=== PATIENT | female | born 1960 | race African-American/Black ===

== ENCOUNTER 2017-08-28 17:49 | Emergency (ER) | payer BC ==
--- NOTE | 2017-08-28 17:54 | PDOC ---
Rapid Medical Evaluation Chief Complaint: Respiratory Time Seen by Provider: 08/28/17 17:53 Medical Evaluation: Allergies Allergy/AdvReac Type Severity Reaction Status Date / Time Penicillins Allergy Rash Verified 06/06/16 16:17 08/28/17 17:54 I have performed a brief in-person evaluation of this patient. The patient presents with a chief complaint of: cough x 1 week. Has h/o HLD and HTN Pertinent physical exam findings:stable w/clear chest/lungs I have ordered the following:CXR The patient will proceed to the ED for further evaluation.
[2017-08-28 17:56] VITALS: BP 119/69; PULSE 61; TEMP 97.8; BMI 24.1
[2017-08-28] MEDS ORDERED: ALBUTEROL SO4 2.5/IPRATROPIUM 0.5 INH SOL 3 ML VIAL.NEB. NEB ONE ×2 (18:52→18:56)
--- NOTE | 2017-08-28 19:13 | PDOC ---
History of Present Illness - General Chief Complaint: Respiratory Stated Complaint: COLD SYMPTOMS Time Seen by Provider: 08/28/17 17:53 History Source: Patient Exam Limitations: No Limitations - History of Present Illness Initial Comments: 08/28/17 19:06 Patient is a 57-year-old female, presents with hacking dry cough for one week patient reports history of same. Recently told that she has beginning stages of asthma has scheduled appointment in September for rn relief charge. Patient states when she has this issue she usually goes on antibiotics which resolves a temporarily and cough returns. Denies any chest pain or shortness of breath, no fever. Past Medical History: hypertension, asthma, hyperlipidemia Allergies: No known allergies Medications: [See medication list] Family History: Non-contributory Social History: Denies smoking, alcohol use, or IVDU Review of Systems GENERAL/CONSTITUTIONAL: [No fever or chills. No weakness. No weight change.] HEAD, EYES, EARS, NOSE AND THROAT: [No change in vision. No ear pain or discharge. No sore throat. ] CARDIOVASCULAR: [No chest pain or shortness of breath.] RESPIRATORY: [COugh, no wheezing, no hemoptysis.] GASTROINTESTINAL: [No nausea, vomiting, diarrhea or constipation. No rectal bleeding.] GENITOURINARY: [No dysuria, frequency, or change in urination.] MUSCULOSKELETAL: [No joint or muscle swelling or pain. No neck or back pain.] SKIN AND BREASTS: [No rash or easy bruising.] NEUROLOGIC: [No headache, vertigo, loss of consciousness, or loss of sensation.] PSYCHIATRIC: [No depression or anxiety.] ENDOCRINE: [No increased thirst. No abnormal weight change.] HEMATOLOGIC/LYMPHATIC: [No anemia, easy bleeding, or history of blood clots.] ALLERGIC/IMMUNOLOGIC: [No hives or skin allergy. No latex allergy.] Physical Exam: GENERAL: [The patient is awake, alert, and fully oriented, in no acute distress. ] EYES: [Pupils equal, round and reactive to light, extraocular movements intact, sclera anicteric, conjunctiva clear.] ENT: [Ears normal, nares patent, oropharynx clear without exudates. Moist mucous membranes. No uvula deviation] NECK: [Normal range of motion, supple without lymphadenopathy, JVD, or masses.] LUNGS: [Spasmotic cough, Breath sounds equal, clear to auscultation bilaterally. No wheezes, and no crackles.] HEART: [Regular rate and rhythm, normal S1 and S2 without murmur, rub or gallop. ] ABDOMEN: [Soft, nontender, normoactive bowel sounds. No guarding, no rebound. No masses. No bruising or abrasions] MUSCULOSKELETAL: [Normal range of motion, no edema. No clubbing or cyanosis. No cords, erythema, or tenderness. No CVA Tenderness with fist.] NEUROLOGICAL: [Cranial nerves II through XII grossly intact. Normal speech, normal gait.] SKIN: [Warm, Dry, normal turgor, no rashes or lesions noted.] 08/28/17 19:09 Past History - Past Medical History Allergies/Adverse Reactions: Allergies Allergy/AdvReac Type Severity Reaction Status Date / Time Penicillins Allergy Rash Verified 08/28/17 17:55 Home Medications: Ambulatory Orders Amlodipine Besylate [Norvasc -] 10 mg PO DAILY 07/04/15 Montelukast Na [Singulair -] 10 mg PO HS 07/04/15 Rosuvastatin Calcium [Crestor] 10 mg PO HS 07/04/15 Albuterol Sulfate Inhaler - [Ventolin HFA Inhaler -] 2 inh PO Q4H PRN #1 inh Fluticasone Prop 0.05% Nasal [Flonase -] 1 spray NS BID #1 spray.pump 06/06/16 Hydrocodone/Chlorphen P-Stirex [Tussionex Pennkinetic Susp] 5 ml PO Q12H PRN # 30 bao.er.12h MDD 10 ml 06/06/16 Albuterol Sulfate Inhaler - [Ventolin Hfa Inhaler -] 2 inh PO Q4H #1 inh Aspirin [Rebeca Chewable Aspirin] 81 mg PO ASDIR 08/28/17 Aspirin/Diphenhydramine Citrat [Rebeca Pm Caplet] 1 each PO ASDIR 08/28/17 Azithromycin [Zithromax 250mg Tablets -] 250 mg PO UTDICT #6 tab 08/28/17 Benzonatate 200 mg PO ASDIR 08/28/17 Fluticasone/Vilanterol [Breo Ellipta 200-25 Mcg INH] 1 each IH ASDIR 08/28/17 Asthma: Yes Cardiac Disorders: Yes (mi) COPD: No HTN: Yes Hypercholesterolemia: Yes - Immunization History Immunization Up to Date: Yes - Suicide/Smoking/Psychosocial Hx Smoking History: Never smoked Have you smoked in the past 12 months: No Number of Cigarettes Smoked Daily: 0 Hx Alcohol Use: No Drug/Substance Use Hx: No Substance Use Type: None *Physical Exam - Vital Signs Last Vital Signs Temp Pulse Resp BP Pulse Ox 97.8 F 61 18 119/69 99 08/28/17 17:53 08/28/17 17:53 08/28/17 17:53 08/28/17 17:53 08/28/17 17:53 ED Treatment Course - Medications Given in the ED: ED Medications Discontinued Medications Generic Name Dose Route Start Last Admin Trade Name Brad PRN Reason Stop Dose Admin Albuterol/Ipratropium 1 amp 08/28/17 18:52 08/28/17 19:01 Duoneb - NEB 08/28/17 18:53 1 amp ONCE ONE Administration Medical Decision Making - Medical Decision Making 08/28/17 19:10 A/P: Patient with cough, lungs are clear, reactive. Cobblestoning to posterior pharynx, consistent with postnasal drip. Patient is currently on Flonase reports is not helping her as well as Singulair. I will give Combivent, chest x- ray pending. 08/28/17 19:11 08/28/17 19:13 08/28/17 19:36 X-ray wet read negative for acute cardiopulmonary disease will DC patient home on albuterol 2 puffs every 4 hours as needed for spasmodic cough, encourage patient to purchase a cool air humidifier and follow-up with pulmonology. Also DC and azithromycin I discussed the physical exam findings, ancillary test results and final diagnoses with the patient. I answered all of the patient's questions. The patient was satisfied with the care received and felt comfortable with the discharge plan and treatment plan. The patient will call to arrange follow-up and will return to the Emergency Department with any new, persistent or worsening symptoms. *DC/Admit/Observation/Transfer Diagnosis at time of Disposition: Cough - Discharge Dispostion Disposition: HOME Condition at time of disposition: Stable Admit: No - Prescriptions Prescriptions: Albuterol Sulfate Inhaler - [Ventolin Hfa Inhaler -] 2 inh PO Q4H #1 inh Azithromycin [Zithromax 250mg Tablets -] 250 mg PO UTDICT #6 tab - Referrals - Patient Instructions Printed Discharge Instructions: Cough Additional Instructions: Keep head of bed elevated 45 when sleeping Recommend follow-up with pulmonology as soon as possible Cool air humidifier Albuterol every 4 hours as needed Motrin for fever greater than 101 Followup in the primary care doctor's office in 2 days for evaluation. If any respiratory distress, increased cough, inability to drink, increased wheezing please return immediately to emergency department. - Post Discharge Activity Forms/Work/School Notes: Back to Work
== END 2017-08-28 19:45 | disposition home or self-care (01) ==
LOC: JERFT 17:49
PROC: 3E0F7GC Introduction of Other Therapeutic Substance into Respiratory Tract, Via Natural or Artificial Opening (ICD-10-PCS; principal; 2017-08-28)
DX: J00 Acute nasopharyngitis [common cold] (principal); R09.82 Postnasal drip
CPT/HCPCS: 71046-TC-FY; 99281-25

== ENCOUNTER 2018-12-26 09:37 | Emergency (ER) | payer BC ==
[2018-12-26 09:44] VITALS: BP 115/69; PULSE 74; TEMP 98.1; BMI 23.8
--- NOTE | 2018-12-26 09:54 | PDOC ---
History of Present Illness - General Chief Complaint: Eye Problem Stated Complaint: RT EYE REDNESS Time Seen by Provider: 12/26/18 09:47 - History of Present Illness Initial Comments: 12/26/18 09:55 58 years old with past medical history significant for hypertension hyperlipidemia presents emergency Department with right eye sub-conjunctival hemorrhage which started yesterday appeared worse today no pain and I no blurry vision or double vision no visual changes no headache no chest pain or shortness of breath Symptoms are mild to moderate persistent constant no exacerbating or alleviating factors. 12/26/18 09:57 Past History - Past Medical History Allergies/Adverse Reactions: Allergies Allergy/AdvReac Type Severity Reaction Status Date / Time Penicillins Allergy Rash Verified 12/26/18 09:39 Home Medications: Ambulatory Orders Amlodipine Besylate [Norvasc -] 10 mg PO DAILY 07/04/15 Montelukast Na [Singulair -] 10 mg PO HS 07/04/15 Rosuvastatin Calcium [Crestor] 10 mg PO HS 07/04/15 Fluticasone Prop 0.05% Nasal [Flonase -] 1 spray NS BID #1 spray.pump 06/06/16 Albuterol Sulfate Inhaler - [Ventolin Hfa Inhaler -] 2 inh PO Q4H #1 inh Aspirin [Rebeca Chewable Aspirin] 81 mg PO ASDIR 08/28/17 Fluticasone/Vilanterol [Breo Ellipta 200-25 Mcg INH] 1 each IH ASDIR 08/28/17 Ergocalciferol [Vitamin D2] 50,000 unit PO Q7D@1000 12/26/18 Potassium Chloride [Klor-Con] meq PO DAILY 12/26/18 Asthma: Yes Cardiac Disorders: Yes (mi) COPD: No HTN: Yes Hypercholesterolemia: Yes - Immunization History Immunization Up to Date: Yes - Suicide/Smoking/Psychosocial Hx Smoking History: Never smoked Have you smoked in the past 12 months: No Number of Cigarettes Smoked Daily: 0 Hx Alcohol Use: No Drug/Substance Use Hx: No Substance Use Type: None Review of Systems - Review of Systems Comments:: 12/26/18 09:56 ROS: A complete review of 10 out of 10 review of systems is taken and is negative apart from what is previously mentioned below and in the HPI. *Physical Exam - Vital Signs Last Vital Signs Temp Pulse Resp BP Pulse Ox 98.1 F 74 17 115/69 100 12/26/18 09:43 12/26/18 09:43 12/26/18 09:43 12/26/18 09:43 12/26/18 09:43 - Physical Exam Comments: 12/26/18 09:56 Vitals: Triage Vital signs reviewed General Appearance: no acute distress, well nourished well developed, Head: Atraumatic, Eyes: Pupils equal reactive round, extraocular movement intact right subconjunctival hemorrhage Skin: Warm and dry, no rashes or lesions, no rash, no petechiae Psych: normal mood, normal affect Medical Decision Making - Medical Decision Making 12/26/18 09:58 Well-appearing no apparent distress with right some conjunctival hemorrhage No visual changes Patient has eye Dr. no acute management needed at this time Findings, the need for follow-up, strict return instructions discussed with patient. *DC/Admit/Observation/Transfer Diagnosis at time of Disposition: Subconjunctival bleed Qualifiers: Laterality: right Qualified Code(s): H11.31 - Conjunctival hemorrhage, right eye - Discharge Dispostion Disposition: HOME Condition at time of disposition: Good Decision to Admit order: No - Referrals - Patient Instructions Printed Discharge Instructions: DI for Subconjunctival Hemorrhage Additional Instructions: Follow-up with your eye doctor within 1 week. Return to the emergency department for any eye symptoms changes in vision or for any concerns. - Post Discharge Activity
== END 2018-12-26 10:03 | disposition home or self-care (01) ==
LOC: JERFT 09:37
DX: H11.31 Conjunctival hemorrhage, right eye (principal); I51.9 Heart disease, unspecified; E78.00 Pure hypercholesterolemia, unspecified; I10 Essential (primary) hypertension; J45.909 Unspecified asthma, uncomplicated
CPT/HCPCS: 99281-25

== ENCOUNTER 2019-04-24 19:10 | Emergency (ER) | payer BC ==
[2019-04-24 19:21] VITALS: BP 111/69; PULSE 75; TEMP 98; BMI 24.1
[2019-04-24] MEDS ORDERED: diphenhydrAMINE HCL 12.5 MG/5 ML UNIT-DOSE CUPS ONE (19:38)
--- NOTE | 2019-04-24 19:46 | PDOC ---
History of Present Illness - General Chief Complaint: Rash Stated Complaint: RASH ON LEG Time Seen by Provider: 04/24/19 19:39 History Source: Patient Exam Limitations: No Limitations - History of Present Illness Initial Comments: 04/24/19 19:39 Patient states was visiting friends and family in [place], and sustained a few lesions/bites to her legs, one on her right forearm, one on her left forearm, and one in her left shoulder. States were very itchy yesterday and used alcohol which relieves some of the itch. Today has tried to avoid itching lesions. Denies any fevers, sore throat swelling to lips tongue or airway difficulty. No known exposure to anyone contagious, and is uncertain as to bug infestation at both friends house in hotel. Denies any lesions to back or buttocks/groin area. Severity: Yes: mild Location: reports: extremities, torso Respiratory Risk Factors: reports: no cause identified, insect bite Associated Symptoms: reports: denies symptoms Past History - Travel Traveled outside of the country in the last 30 days: No Close contact w/someone who was outside of country & ill: No - Past Medical History Allergies/Adverse Reactions: Allergies Allergy/AdvReac Type Severity Reaction Status Date / Time Penicillins Allergy Rash Verified 04/24/19 19:36 Home Medications: Ambulatory Orders Amlodipine Besylate [Norvasc -] 10 mg PO DAILY 07/04/15 Montelukast Na [Singulair -] 10 mg PO HS 07/04/15 Rosuvastatin Calcium [Crestor] 10 mg PO HS 07/04/15 Fluticasone Prop 0.05% Nasal [Flonase -] 1 spray NS BID #1 spray.pump 06/06/16 Albuterol Sulfate Inhaler - [Ventolin Hfa Inhaler -] 2 inh PO Q4H #1 inh Aspirin [Rebeca Chewable Aspirin] 81 mg PO ASDIR 08/28/17 Fluticasone/Vilanterol [Breo Ellipta 200-25 Mcg INH] 1 each IH ASDIR 08/28/17 Ergocalciferol [Vitamin D2] 50,000 unit PO Q7D@1000 12/26/18 Potassium Chloride [Klor-Con] meq PO DAILY 12/26/18 Asthma: Yes Cardiac Disorders: Yes (mi) COPD: No HTN: Yes Hypercholesterolemia: Yes - Immunization History Immunization Up to Date: Yes - Psycho Social/Smoking Cessation Hx Smoking History: Never smoked Have you smoked in the past 12 months: No Number of Cigarettes Smoked Daily: 0 Hx Alcohol Use: No Drug/Substance Use Hx: No Substance Use Type: None Review of Systems - Review of Systems Able to Perform ROS?: Yes Is the patient limited [place]anian proficient: Yes Constitutional: Yes: See HPI. No: Symptoms Reported, Fever, Loss of Appetite, Malaise HEENTM: Yes: See HPI. No: Symptoms Reported, Nose Congestion, Throat Swelling, Difficulty Swallowing, Mouth Swelling Respiratory: Yes: See HPI. No: Symptoms reported, Cough, Shortness of Breath, Wheezing Musculoskeletal: Yes: See HPI. No: Symptoms Reported Integumentary: Yes: Symptoms Reported, See HPI, Pruritus, Rash Neurological: No: Symptoms reported All Other Systems: Reviewed and Negative *Physical Exam - Vital Signs Last Vital Signs Temp Pulse Resp BP Pulse Ox 98 F 75 18 111/69 97 04/24/19 19:18 04/24/19 19:18 04/24/19 19:18 04/24/19 19:18 04/24/19 19:18 - Physical Exam General Appearance: Yes: Appropriately Dressed, Apparent Distress HEENT: positive: FROY, Normal ENT Inspection (No swelling to lips, tongue, airway patent), TMs Normal, Pharynx Normal Neck: positive: Supple. negative: Tender Respiratory/Chest: positive: Lungs Clear, Normal Breath Sounds Gastrointestinal/Abdominal: positive: Soft Musculoskeletal: positive: Normal Inspection Extremity: positive: Normal Capillary Refill, Normal Inspection, Normal Range of Motion. negative: Tender Integumentary: positive: Normal Color, Rash (Multiple discrete lesions with central point and mild erythema circumferentially. Some pruritic. No evidence of cellulitis, no evidence of purulence or infectiousness. All consistent with discrete insect bites. Locations are discrete areas to forearm, bilateral hands , left shoulder, and 2 on right gill) Neurologic: positive: carpenter refrigerator II-XII NML intact, Fully Oriented, Alert, Normal Mood/ Affect, Normal Response, Motor Strength 5/5 ED Progress Note - Progress Note Progress Note: 04/25/19 09:26 Pruritic lesions, probable insect bites but no evidence of infectiousness. Will treat conservatively with antihistamines and topical application Discharge - Discharge Information Problems reviewed: Yes Clinical Impression/Diagnosis: Insect bite Qualifiers: Encounter type: initial encounter Site of insect bite: lower leg Laterality: unspecified laterality Qualified Code(s): S80.869A - Insect bite (nonvenomous), unspecified lower leg, initial encounter Condition: Stable Disposition: HOME - Admission No - Follow up/Referral - Patient Discharge Instructions Patient Printed Discharge Instructions: DI for Insect Bites and Stings Additional Instructions: Rest, keep cool and dry- avoid strenuous activity or hot /humid environments Less hot showers, no abrasive soaps May use ice packs, cool cloth on itching lesions May use heavy creams like Eucerin or Cetaphil to keep skin moist May apply Aveeno, calamine lotion, [id number] hydrocortisone creams as needed for symptoms May use Benadryl at night for antihistamine, Zyrtec/ Belle or Claritin for daytime antihistamine use to help with itching A use aloe vera gel to help assist with itching and inflammatory response May use [id number] hydrocortisone cream on all areas except face Try to identify cause for rash and avoid exposures Be sure to use insect sprays/repellent, ones with DEET are the most effective when outdoors Followup with PMD in one week if no resolution Make appointment with map drafter for evaluation when possible Return to emergency department for worsening swelling, pus or purulent drainage from areas or any changes with swelling to lips, tongue, face or breathing problems from ALLERGIC reaction. - Post Discharge Activity
== END 2019-04-24 19:53 | disposition home or self-care (01) ==
LOC: JER 19:10 → JERFT 19:10
DX: S80.869A Insect bite (nonvenomous), unspecified lower leg, initial encounter (principal); W57.XXXA Bitten or stung by nonvenomous insect and other nonvenomous arthropods, initial encounter; Y93.89 Activity, other specified; Y92.89 Other specified places as the place of occurrence of the external cause; Z88.0 Allergy status to penicillin; I10 Essential (primary) hypertension; I25.2 Old myocardial infarction; J45.909 Unspecified asthma, uncomplicated; E78.00 Pure hypercholesterolemia, unspecified
CPT/HCPCS: 99281-25